=== PATIENT | male | born 1960 | race African-American/Black ===

== ENCOUNTER 2016-12-07 13:40 | Emergency (ER) | payer BC, MEDICAID ==
[~2016-12-07] VITALS: Ht 182.9 cm; Wt 90.0 kg
[~2016-12-07 13:40] MED LIST: AMLO10TA4; ASPI-1035; ATOR20TA; BENA40TA66; CYCL-374; DIGO125T82; FERR1TAB51 PF; OMEP40CA34 PO; TAMS-11 PO
[2016-12-07] MEDS ORDERED: ONDANSETRON HCL 4MG/2ML VIAL IV STA (14:40)
[2016-12-07 15:13] LABS: BASOPHILS % 0.5 % (0.0-2.0); EOSINOPHILS % 2.9 % (0.0-5.0); HEMATOCRIT. 40.6 % (42.0-52.0); HEMOGLOBIN. 13.3 g/dL (14.0-18.0); LYMPHOCYTES % 16.3 % (20.0-50.0); MEAN CORPUSCULAR HEMOGLOBIN 27.3 pg (28.0-32.0); MEAN CORPUSCULAR HGB CONC 32.7 g/dL (31.0-37.0); MEAN CORPUSCULAR VOLUME 83.5 fL (80.0-94.0); MEAN PLATELET VOLUME 9.1 fl (7.4-10.4); NEUTROPHILS % 69.3 % (40.0-76.0); PLATELET 164 x1000/uL (130-400); RED BLOOD CELL COUNT 4.86 mill/uL (4.7-6.1); RED CELL DISTRIBUTION WIDTH 14.4 % (11.6-14.6); WHITE BLOOD COUNT 6.1 x1000/uL (4.5-11.0)
[2016-12-07 15:19] LABS: CHLORIDE 108 mEq/L (98-107); INDEX HEMOLYSI 1 (1-3); INDEX ICTERIC 1 (1-4); INDEX LIPEMIC 1 (1-3)
[2016-12-07 15:23] LABS: ANION GAP 11; CALCIUM 8.1 mg/dL (8.5-10.1); CARBON DIOXIDE 30 mEq/L (21-32); INR 1.1; LIPASE 90 IU/L (73-393); PARTIAL THROMBOPLASTIN TIME 26.4 sec (24.0-34.0); PROTHROMBIN TIME 10.9 sec; UREA NITROGEN BLOOD 16 mg/dL (7-21)
[2016-12-07 15:31] LABS: ALANINE AMINOTRANSFERASE 22 IU/L (13-61); ETHANOL BLOOD < 10 mg/dL; NT PRO B-TYPE NATRIURETIC PEP 440 pg/mL (5-125); TROPONIN I < 0.02 ng/mL (0.00-0.04); eGFR 58 mL/min (>60)
[2016-12-07 15:36] LABS: THYROID STIMULATING HORMONE 0.56 uIU/mL (0.36-3.74)
[2016-12-07] MEDS ORDERED: MORPHINE SULFATE 4 MG/ML CPJ (NOT FOR IM USE) IV ONE ×2 (15:45→15:50)
[2016-12-07 15:50] VITALS: BP 124/73
== END 2016-12-07 17:44 | disposition left against medical advice (07) ==
LOC: ER 14:02
DX: R07.89 Other chest pain (principal); R06.02 Shortness of breath; R00.1 Bradycardia, unspecified; F12.10 Cannabis abuse, uncomplicated; I10 Essential (primary) hypertension; F17.200 Nicotine dependence, unspecified, uncomplicated; E78.00 Pure hypercholesterolemia, unspecified; I25.2 Old myocardial infarction; Z95.5 Presence of coronary angioplasty implant and graft; Z79.82 Long term (current) use of aspirin
CPT/HCPCS: 36415; 71010; 80053; 83690; 83880; 84443; 84484; 85025; 85610; 85730; 93005; 96374; 96375; 99285; G0482; J2270; J2405

== ENCOUNTER 2016-12-07 18:19 | Inpatient (IN) | payer BC, MEDICAID ==
[~2016-12-07] VITALS: Ht 188 cm; Wt 120.2 kg
[2016-12-07] MEDS ORDERED: DOCUSATE SODIUM 100MG CAPSULE PO PRN (19:30)
[2016-12-07] MEDS ORDERED: ONDANSETRON HCL 4MG/2ML VIAL IV PRN (19:30)
[2016-12-07] MEDS ORDERED: HYDROMORPHONE HCL/PF 2MG/ML CPJ IV PRN (19:30)
[2016-12-07] MEDS ORDERED: CLONIDINE 0.1MG TABLET PO PRN (19:30)
[2016-12-07] MEDS ORDERED: GUAIFENESIN 200MG/10ML SUGAR FREE UDC PO PRN (19:30)
[2016-12-07] MEDS ORDERED: ACETAMINOPHEN 325MG TABLET PO PRN (19:30)
[2016-12-07] MEDS ORDERED: DIPHENHYDRAMINE 50MG/ML VIAL IV PRN (19:30)
[2016-12-07 22:00] VITALS: BP 105/69
[2016-12-07 22:36] VITALS: BP 105/69
[2016-12-07 22:45] VITALS: BP 105/69
[2016-12-08] VITALS: BP 121/71
[2016-12-08 04:00] VITALS: BP 143/82
[2016-12-08 06:43] LABS: BASOPHILS % 0.3 % (0.0-2.0); EOSINOPHILS % 2.9 % (0.0-5.0); HEMATOCRIT. 38.9 % (42.0-52.0); HEMOGLOBIN. 12.9 g/dL (14.0-18.0); LYMPHOCYTES % 24.9 % (20.0-50.0); MEAN CORPUSCULAR HEMOGLOBIN 27.5 pg (28.0-32.0); MEAN CORPUSCULAR HGB CONC 33.1 g/dL (31.0-37.0); MEAN PLATELET VOLUME 9.4 fl (7.4-10.4); MONOCYTES % 11.7 % (2.0-8.0); NEUTROPHILS % 60.2 % (40.0-76.0); PLATELET 155 x1000/uL (130-400); RED BLOOD CELL COUNT 4.69 mill/uL (4.7-6.1); RED CELL DISTRIBUTION WIDTH 14.4 % (11.6-14.6); WHITE BLOOD COUNT 5.5 x1000/uL (4.5-11.0)
[2016-12-08 07:22] LABS: ALANINE AMINOTRANSFERASE 18 IU/L (13-61); ALBUMIN 2.8 g/dL (3.4-5.0); ANION GAP 11; CALCIUM 7.9 mg/dL (8.5-10.1); CARBON DIOXIDE 28 mEq/L (21-32); CHLORIDE 107 mEq/L (98-107); HDL CHOLESTEROL 51 mg/dL (40-59); INDEX HEMOLYSI 1 (1-3); INDEX ICTERIC 1 (1-4); INDEX LIPEMIC 1 (1-3); LDL CHOLESTEROL 53 mg/dL (5-100); TRIGLYCERIDE 60 mg/dL (0-150); TROPONIN I 0.02 ng/mL (0.00-0.04); UREA NITROGEN BLOOD 16 mg/dL (7-21); eGFR > 60 mL/min (>60)
[2016-12-08 08:00] VITALS: BP 128/86
[2016-12-08] MEDS: ASPIRIN 81MG EC TABLET PO SCH (09:40)
[2016-12-08] MEDS: ENOXAPARIN 30MG/0.3ML SYR SUBCUT SCH ×2 (09:40→21:56)
[2016-12-08] MEDS: AMLODIPINE 10MG TABLET PO SCH (09:40)
[2016-12-08] MEDS: TAMSULOSIN HCL 0.4MG SR CAPSULE PO SCH (09:41)
[2016-12-08 11:56] VITALS: BP 138/82
[2016-12-08 15:32] VITALS: BP 121/82
[2016-12-08] MEDS: DIGOXIN 125MCG TABLET PO SCH (18:00)
[2016-12-08 20:00] VITALS: BP 127/68
[2016-12-09] VITALS: BP 160/86
[2016-12-09 04:00] VITALS: BP 138/89
[2016-12-09] MEDS: ENOXAPARIN 30MG/0.3ML SYR SUBCUT SCH ×2 (09:34→21:23)
[2016-12-09] MEDS: ASPIRIN 81MG EC TABLET PO SCH (09:34)
[2016-12-09] MEDS: TAMSULOSIN HCL 0.4MG SR CAPSULE PO SCH (09:35)
[2016-12-09] MEDS: AMLODIPINE 10MG TABLET PO SCH (09:36)
[2016-12-09] MEDS ORDERED: REGADENOSON 0.4 MG/5 ML IV NR (10:30)
[2016-12-09 12:40] LABS: T4 FREE 0.98 ng/dL (0.76-1.46); THYROID STIMULATING HORMONE 0.51 uIU/mL (0.36-3.74)
[2016-12-09 15:48] LABS: CREATINE KINASE 86 IU/L (39-308); CREATINE KINASE MB FRACTION 0.6 ng/mL (0.5-3.6); INDEX HEMOLYSI 1 (1-3); TROPONIN I < 0.02 ng/mL (0.00-0.04)
[2016-12-09] MEDS: DIGOXIN 125MCG TABLET PO SCH (18:58)
[2016-12-09 20:37] LABS: *AMPHETAMINES SCREEN URINE NEGATIVE (NEGATIVE); *BARBITURATES SCREEN URINE NEGATIVE (NEGATIVE); *BENZODIAZEPINES SCREEN URINE NEGATIVE (NEGATIVE); *COCAINE SCREEN URINE PRESUMTIVE POSITIVE (NEGATIVE); CANNABINOID URINE SCREEN PRESUMTIVE POSITIVE (NEGATIVE); ECSTASY MDMA SCREEN URINE NEGATIVE (NEGATIVE); METHADONE URINE SCREEN NEGATIVE (NEGATIVE); OPIATES URINE SCREEN NEGATIVE (NEGATIVE); PHENCYCLIDINE URINE SCREEN NEGATIVE (NEGATIVE)
[2016-12-09 21:08] VITALS: BP 123/80
[2016-12-10] VITALS: BP 127/71
[2016-12-10 00:16] LABS: CREATINE KINASE 93 IU/L (39-308); CREATINE KINASE MB FRACTION 1.1 ng/mL (0.5-3.6); INDEX HEMOLYSI 1 (1-3); TROPONIN I < 0.02 ng/mL (0.00-0.04)
[2016-12-10 04:00] VITALS: BP 139/89
[2016-12-10 06:25] LABS: TROPONIN I 0.03 ng/mL (0.00-0.04)
[2016-12-10] MEDS: TAMSULOSIN HCL 0.4MG SR CAPSULE PO SCH (09:00)
[2016-12-10] MEDS: ENOXAPARIN 30MG/0.3ML SYR SUBCUT SCH (09:00)
[2016-12-10] MEDS: AMLODIPINE 10MG TABLET PO SCH (09:00)
[2016-12-10] MEDS ORDERED: ASPIRIN 81MG TABLET PO SCH (09:00)
== END 2016-12-10 11:30 | disposition left against medical advice (07) | DRG 302 ==
LOC: ER 19:13 → 6WST 19:40
PROVIDERS: ADMIT Hospitalist; ATTEND Hospitalist
DX: I25.10 Atherosclerotic heart disease of native coronary artery without angina pectoris (principal); E43 Unspecified severe protein-calorie malnutrition; I10 Essential (primary) hypertension; I25.2 Old myocardial infarction; E83.51 Hypocalcemia; R00.1 Bradycardia, unspecified; D72.810 Lymphocytopenia; D72.821 Monocytosis (symptomatic); E78.00 Pure hypercholesterolemia, unspecified; E78.5 Hyperlipidemia, unspecified; E87.8 Other disorders of electrolyte and fluid balance, not elsewhere classified; F12.90 Cannabis use, unspecified, uncomplicated; Z53.21 Procedure and treatment not carried out due to patient leaving prior to being seen by health care provider; F17.200 Nicotine dependence, unspecified, uncomplicated; D64.9 Anemia, unspecified; Z95.1 Presence of aortocoronary bypass graft; Z79.82 Long term (current) use of aspirin; Z79.899 Other long term (current) drug therapy; Z72.89 Other problems related to lifestyle; Z28.21 Immunization not carried out because of patient refusal
CPT/HCPCS: 36415; 80053; 80061; 80305; 82550; 82553; 83036; 83880; 84439; 84443; 84484; 85025; 85379; 93005; 93306; 93970; 99285; J1650

== ENCOUNTER 2016-12-13 10:17 | Emergency (ER) | payer BC, MEDICAID ==
[~2016-12-13] VITALS: Ht 185.4 cm; Wt 109.0 kg
[~2016-12-13 10:17] MED LIST changes: -OMEP40CA34 PO
[2016-12-13 10:56] LABS: BASOPHILS % 0.8 % (0.0-2.0); EOSINOPHILS % 5.9 % (0.0-5.0); HEMATOCRIT. 40.2 % (42.0-52.0); HEMOGLOBIN. 13.3 g/dL (14.0-18.0); MEAN CORPUSCULAR HEMOGLOBIN 27.4 pg (28.0-32.0); NEUTROPHILS % 53.3 % (40.0-76.0); PLATELET 163 x1000/uL (130-400); RED BLOOD CELL COUNT 4.84 mill/uL (4.7-6.1); RED CELL DISTRIBUTION WIDTH 14.5 % (11.6-14.6); WHITE BLOOD COUNT 4.8 x1000/uL (4.5-11.0)
[2016-12-13 11:03] LABS: PROTHROMBIN TIME 10.5 sec
[2016-12-13 11:12] LABS: ALANINE AMINOTRANSFERASE 28 IU/L (13-61); ALBUMIN 3.1 g/dL (3.4-5.0); ANION GAP 12; CALCIUM 8.2 mg/dL (8.5-10.1); CARBON DIOXIDE 26 mEq/L (21-32); CHLORIDE 107 mEq/L (98-107); INDEX HEMOLYSI 3 (1-3); INDEX ICTERIC 1 (1-4); INDEX LIPEMIC 1 (1-3); NT PRO B-TYPE NATRIURETIC PEP 280 pg/mL (5-125); TROPONIN I 0.05 ng/mL (0.00-0.04); UREA NITROGEN BLOOD 20 mg/dL (7-21); eGFR > 60 mL/min (>60)
[2016-12-13 12:04] LABS: *AMPHETAMINES SCREEN URINE NEGATIVE (NEGATIVE); *BARBITURATES SCREEN URINE NEGATIVE (NEGATIVE); *BENZODIAZEPINES SCREEN URINE NEGATIVE (NEGATIVE); *COCAINE SCREEN URINE PRESUMTIVE POSITIVE (NEGATIVE); CANNABINOID URINE SCREEN PRESUMTIVE POSITIVE (NEGATIVE); ECSTASY MDMA SCREEN URINE NEGATIVE (NEGATIVE); METHADONE URINE SCREEN NEGATIVE (NEGATIVE); OPIATES URINE SCREEN NEGATIVE (NEGATIVE); PHENCYCLIDINE URINE SCREEN NEGATIVE (NEGATIVE)
[2016-12-13 12:45] VITALS: BP 165/90
== END 2016-12-13 14:25 | disposition left against medical advice (07) ==
LOC: ER 10:40
DX: R07.89 Other chest pain (principal); I10 Essential (primary) hypertension; E78.00 Pure hypercholesterolemia, unspecified; I25.2 Old myocardial infarction; Z95.1 Presence of aortocoronary bypass graft; Z79.82 Long term (current) use of aspirin
CPT/HCPCS: 36415; 71010; 80053; 80305; 83880; 84484; 85025; 85610; 93005; 99285

== ENCOUNTER 2019-01-06 18:48 | Emergency (ER) | payer BC, MEDICAID, MEDICARE, OTHER ==
[~2019-01-06] VITALS: Ht 185.4 cm; Wt 104.0 kg
[~2019-01-06 18:48] MED LIST changes: -AMLO10TA4; +AMLO10TA4 PO; -ASPI-1035; +ASPI-1159 PO; -ATOR20TA; +ATOR20TA PO; -BENA40TA66; +BENA40TA66 PO; -CYCL-374; +CYCL10TA7 PO; -DIGO125T82; +DIGO125T82 PO; -FERR1TAB51 PF; +FERR1TAB51 PO
[2019-01-06] MEDS ORDERED: HYDROCODONE/ACETAMINOPHEN 5/325MG TABLET PO STA (19:57)
[2019-01-06 20:19] LABS: BASOPHILS % 0.5 % (0.0-2.0); CHLORIDE 110 mEq/L (98-107); EOSINOPHILS % 3.1 % (0.0-5.0); HEMATOCRIT. 43.8 % (42.0-52.0); HEMOGLOBIN. 14.5 g/dL (14.0-18.0); LYMPHOCYTES % 30.4 % (20.0-50.0); MEAN CORPUSCULAR HEMOGLOBIN 27.5 pg (28.0-32.0); MEAN CORPUSCULAR VOLUME 83.2 fL (80.0-94.0); MEAN PLATELET VOLUME 8.7 fl (7.4-10.4); MONOCYTES % 8.1 % (2.0-8.0); NEUTROPHILS % 57.9 % (40.0-76.0); PLATELET 173 x1000/uL (130-400); RED BLOOD CELL COUNT 5.27 mill/uL (4.7-6.1)
[2019-01-06 20:35] VITALS: BP 147/96
[2019-01-06] MEDS ORDERED: NITR0.4T49 SL (22:54)
[2019-01-06] MEDS ORDERED: METO-539 MT (22:56)
== END 2019-01-06 20:49 | disposition left against medical advice (07) ==
LOC: ER 18:48 → CANBEDREQ 01-07 01:13
DX: R07.89 Other chest pain (principal); E78.00 Pure hypercholesterolemia, unspecified; I10 Essential (primary) hypertension; I25.2 Old myocardial infarction; F14.10 Cocaine abuse, uncomplicated; F12.10 Cannabis abuse, uncomplicated; N40.0 Benign prostatic hyperplasia without lower urinary tract symptoms; Z79.82 Long term (current) use of aspirin; Z79.899 Other long term (current) drug therapy
CPT/HCPCS: 36415; 80053; 83880; 84484; 85025; 85610; 93005; 99284; Z7610

== ENCOUNTER 2019-01-06 22:04 | Inpatient (IN) | payer OTHER, MEDICARE ==
[~2019-01-06] VITALS: Ht 188 cm; Wt 127.0 kg
[2019-01-06] MEDS ORDERED: ASPIRIN 81MG TABLET PO ONE (22:45)
[2019-01-06] MEDS ORDERED: NITR0.4T49 SL (22:54)
[2019-01-06] MEDS ORDERED: METO-539 MT (22:56)
[2019-01-06 23:30] VITALS: BP 149/87
[2019-01-07] VITALS: BP 149/87
[2019-01-07] MEDS ORDERED: CYCLOBENZAPRINE 10MG TABLET PO PRN (03:00)
[2019-01-07 04:00] VITALS: BP 118/79
[2019-01-07] MEDS ORDERED: ACETAMINOPHEN 650MG/20.3ML UDC PO PRN (07:45)
[2019-01-07 08:00] VITALS: BP 136/72
[2019-01-07] MEDS: TAMSULOSIN HCL 0.4MG SR CAPSULE PO SCH (08:37)
[2019-01-07] MEDS: ASPIRIN 81MG TABLET PO SCH (08:37)
[2019-01-07] MEDS: FERROUS SULFATE 325MG TABLET PO SCH (08:38)
[2019-01-07] MEDS ORDERED: BENAZEPRIL 10MG TABLET PO SCH (09:00)
[2019-01-07] MEDS ORDERED: AMLODIPINE 10MG TABLET PO SCH (09:00)
[2019-01-07] MEDS ORDERED: METOPROLOL TARTRATE 50MG TABLET PO SCH (09:00)
[2019-01-07 09:25] LABS: BASOPHILS % 0.7 % (0.0-2.0); EOSINOPHILS % 3.2 % (0.0-5.0); HEMATOCRIT. 42.6 % (42.0-52.0); HEMOGLOBIN. 14.1 g/dL (14.0-18.0); LYMPHOCYTES % 34.1 % (20.0-50.0); MEAN CORPUSCULAR HEMOGLOBIN 27.9 pg (28.0-32.0); MEAN CORPUSCULAR VOLUME 83.9 fL (80.0-94.0); MONOCYTES % 7.1 % (2.0-8.0); NEUTROPHILS % 54.9 % (40.0-76.0); PLATELET 181 x1000/uL (130-400); RED BLOOD CELL COUNT 5.07 mill/uL (4.7-6.1); RED CELL DISTRIBUTION WIDTH 15.2 % (11.6-14.6)
[2019-01-07 09:36] LABS: CHLORIDE 111 mEq/L (98-107)
[2019-01-07 09:47] LABS: HDL CHOLESTEROL 54 mg/dL (40-59); LDL CHOLESTEROL 82 mg/dL (5-100)
[2019-01-07 12:00] VITALS: BP 141/86
[2019-01-07 14:19] LABS: *AMPHETAMINES SCREEN URINE NEGATIVE (NEGATIVE); *BARBITURATES SCREEN URINE NEGATIVE (NEGATIVE); *BENZODIAZEPINES SCREEN URINE NEGATIVE (NEGATIVE); *COCAINE SCREEN URINE PRESUMTIVE POSITIVE (NEGATIVE); METHADONE URINE SCREEN NEGATIVE (NEGATIVE)
[2019-01-07 14:20] LABS: CANNABINOID URINE SCREEN PRESUMTIVE POSITIVE (NEGATIVE); OPIATES URINE SCREEN PRESUMTIVE POSITIVE (NEGATIVE); PHENCYCLIDINE URINE SCREEN NEGATIVE (NEGATIVE)
[2019-01-07 16:00] VITALS: BP 147/94
[2019-01-07] MEDS ORDERED: HYDRALAZINE 20MG/ML VIAL IV PRN (16:00)
[2019-01-07] MEDS ORDERED: DIPHENHYDRAMINE 50MG/ML VIAL IV PRN (16:00)
[2019-01-07] MEDS ORDERED: HYDROCODONE/ACETAMINOPHEN 5/325MG TABLET PO PRN (16:00)
[2019-01-07] MEDS ORDERED: ACETAMINOPHEN 650MG SUPP PR PRN (16:00)
[2019-01-07] MEDS ORDERED: AMLODIPINE 5MG TABLET PO SCH (16:00)
[2019-01-07] MEDS: ENOXAPARIN 40MG/0.4ML SYR SUBCUT SCH (16:00)
[2019-01-07] MEDS ORDERED: ACETAMINOPHEN 325MG TABLET PO PRN ×2 (16:00→16:15)
[2019-01-07] MEDS: SODIUM CHLORIDE 0.45% 1,000 ML IV SCH (17:50)
[2019-01-07] MEDS: NICOTINE 14MG PATCH TD SCH (17:50)
[2019-01-07] MEDS ORDERED: DIGOXIN 125MCG TABLET PO SCH (18:00)
[2019-01-07 18:04] LABS: PROTHROMBIN TIME 10.2 sec (9.6-11.0)
[2019-01-07 20:00] VITALS: BP 134/81
[2019-01-07 20:49] LABS: CLARITY URINE CLEAR (CLEAR); COLOR URINE YELLOW (YELLOW); KETONES URINE NEGATIVE (NEGATIVE); LEUKOCYTE ESTERASE URINE 1+ (NEGATIVE); NITRITE URINE NEGATIVE (NEGATIVE); OCCULT BLOOD URINE NEGATIVE (NEGATIVE); PH URINE 5.5 (4.5-8.0); PROTEIN URINE 2+ (NEGATIVE); SPECIFIC GRAVITY URINE 1.018 (1.005-1.030); UROBILINOGEN URINE 0.2 E.U./dL (0.2-1.0)
[2019-01-07] MEDS ORDERED: ATORVASTATIN CALCIUM 20MG TABLET PO SCH (21:00)
[2019-01-08] VITALS (7 sets, daily range): BP systolic 109–139; BP diastolic 56–97
[2019-01-08] MEDS: ENOXAPARIN 40MG/0.4ML SYR SUBCUT SCH ×2 (04:00→16:00)
[2019-01-08] MEDS: NITROGLYCERIN 0.4MG TABLET SL SL PRN ×2 (06:52→10:09)
[2019-01-08] MEDS: FERROUS SULFATE 325MG TABLET PO SCH (08:38)
[2019-01-08] MEDS: TAMSULOSIN HCL 0.4MG SR CAPSULE PO SCH (08:38)
[2019-01-08] MEDS: ASPIRIN 81MG TABLET PO SCH (08:38)
[2019-01-08] MEDS: NICOTINE 14MG PATCH TD SCH (08:39)
[2019-01-08] MEDS ORDERED: AMLODIPINE 5MG TABLET PO SCH (09:00)
[2019-01-08 09:34] LABS: HEMATOCRIT 40.8 % (42.0-52.0); HEMOGLOBIN 13.5 g/dL (14.0-18.0); MEAN CORPUSCULAR HEMOGLOBIN 27.2 pg (28.0-32.0); MEAN CORPUSCULAR VOLUME 82.3 fL (80.0-94.0); PLATELET 161 x1000/uL (130-400); RED BLOOD CELL COUNT 4.96 mill/uL (4.7-6.1); RED CELL DISTRIBUTION WIDTH 15.1 % (11.6-14.6)
[2019-01-08 10:05] LABS: T4 FREE 1.06 ng/dL (0.76-1.46)
[2019-01-08 10:11] LABS: DIGOXIN 0.9 ng/mL (0.9-2.0)
[2019-01-08] MEDS: SODIUM CHLORIDE 0.45% 1,000 ML IV SCH (16:00)
[2019-01-08 16:06] LABS: CREATINE KINASE MB FRACTION 1.4 ng/mL (0.5-3.6)
== END 2019-01-08 17:29 | disposition home or self-care (01) | DRG 917 ==
LOC: ER 22:04 → EDBEDREQTM 22:37 → EDBEDREQ 22:37 → ENRESERV 23:34 → 7WST 23:40
PROVIDERS: ADMIT Internal Medicine; ATTEND Internal Medicine
DX: T40.5X1A Poisoning by cocaine, accidental (unintentional), initial encounter (principal); I50.43 Acute on chronic combined systolic (congestive) and diastolic (congestive) heart failure; I47.1 Supraventricular tachycardia; E78.5 Hyperlipidemia, unspecified; F17.210 Nicotine dependence, cigarettes, uncomplicated; R07.89 Other chest pain; R73.9 Hyperglycemia, unspecified; I11.0 Hypertensive heart disease with heart failure; I25.10 Atherosclerotic heart disease of native coronary artery without angina pectoris; Z91.19 Patient's noncompliance with other medical treatment and regimen; Z95.1 Presence of aortocoronary bypass graft; Z79.82 Long term (current) use of aspirin; Z79.899 Other long term (current) drug therapy; Y92.89 Other specified places as the place of occurrence of the external cause
CPT/HCPCS: 36415; 71045; 80061; 80162; 80305; 82550; 82553; 83036; 83880; 84153; 84439; 84443; 84484; 85027; 85379; 93005; 93306; 93970; 99285; J1650; G0103